=== PATIENT | male | born 1990 | race Caucasian/White ===

== ENCOUNTER 2024-09-15 16:25 | Emergency (ER) | payer OTHER | END 2024-09-15 19:57 | disposition home or self-care (01) | LOC: MW.ED 16:25 | DX: S69.92XA Unspecified injury of left wrist, hand and finger(s), initial encounter (principal); Z75.3 Unavailability and inaccessibility of health-care facilities; X50.9XXA Other and unspecified overexertion or strenuous movements or postures, initial encounter | CPT/HCPCS: 73130-26-RT; 73130-RT; 99282; 99283 ==